=== PATIENT | male | born 1950 | race Caucasian/White ===

== ENCOUNTER 2024-02-13 12:09 | Day surgery (SDC) | payer OTHER ==
--- NOTE | 2024-01-30 13:34 | RAD REPORT ---
EXAM DESCRIPTION: RAD - Chest Pa And Lat (2 Views) - 01/30/2024 1:25 pm CLINICAL HISTORY: PRE OP ABD ANGIO Chest pain. COMPARISON: <Comparisons> FINDINGS: The lungs are clear. The heart is mildly prominent in size. No displaced fractures. IMPRESSION: No acute or concerning finding suspected. The USPSTF recommends annual screening for lung cancer with low-dose CT (LDCT) in adults aged 50 to 8 0 years who have a 20 pack-year smoking history and currently smoke or have quit within the past 15 y ears.
[2024-01-30 14:49] LABS: Absolute Basophils 0.1 K/uL (0-0.5); Absolute Eosinophils 0.3 K/uL (0-0.5); Absolute Lymphocytes (CBC) 2.2 K/uL (0.7-4.9); Absolute Monocytes 0.7 K/uL (0.1-1.3); Absolute Neutrophil 4.2 K/uL (1.8-8.0); Eosinophils % 4.3 % (0-4.4); Hematocrit 43.8 % (39.6-49.0); Hemoglobin 14.7 g/dL (13.6-17.9); Lymphocytes % 29.9 % (15.3-44.8); MCH 31.8 pg (27.0-35.0); MCHC 33.4 g/dL (32.0-36.0); MCV 95.1 fL (80-100); MPV 8.6 fL (7.6-11.3); Monocytes % 9.1 % (3.3-12.3); Neutrophils % 55.7 % (41.7-73.7); Platelets 380 thou/uL (152-406); RBC Red Blood Cell Count 4.61 M/uL (4.33-5.43); Red Cell Distribution Width 12.8 % (12.1-15.2)
[2024-01-30 15:03] LABS: PT Prothrombin Time 10.3 SECONDS (9.5-12.5); PTT, Activated Partial Thromb 31.8 SECONDS (24.3-36.9); Protime INR 0.93
--- NOTE | 2024-02-01 16:21 | EKG ---
Test Date: 2024-01-30 Test Time: 13:09:05 Flitch Hanger: HEIDI MEASUREMENT RESULTS: Intervals: Rate: 57 IA: 188 QRSD: 100 QT: 460 QTc: 447 [place]: P: 39 IA: 188 QRS: 5 T: 54 INTERPRETIVE STATEMENTS: Sinus bradycardia Nonspecific T wave abnormality Abnormal ECG Compared to ECG 03/14/2001 12:19:00 T-wave abnormality now present Sinus rhythm no longer present Electronically Signed On 02-01-24 16:17:30 CDT by Jameson Restrepo
[2024-02-13] MEDS: NA CHLORIDE 0.9% 500 ML ONE (14:00)
[2024-02-13] MEDS ORDERED: MIDAZOLAM HCL 2 MG/2 ML INJ ONE (15:39)
[2024-02-13] MEDS ORDERED: ATROPINE SULF 1 MG/10 ML SYR IV ONE (15:39)
[2024-02-13] MEDS ORDERED: LIDOCAINE 1% 20 ML MDV ONE (15:39)
[2024-02-13] MEDS ORDERED: HEPA 1000U/500MLS 2,000 UNIT/1,000 ML BAG IV ONE (15:39)
[2024-02-13] MEDS ORDERED: FENTANYL CITR 100 MCG/2 ML ONE (15:39)
[2024-02-13] MEDS ORDERED: HEPARIN 5000 UNIT/ML 1 ML VIAL ONE (15:40)
[2024-02-13] MEDS ORDERED: HEPARIN 10,000 UNIT/10 ML VIAL IV ONE (15:40)
[2024-02-13] MEDS ORDERED: VERAPAMIL HCL 10 MG/4 ML VIAL IV ONE (16:06)
[2024-02-13 17:26] VITALS: TEMP 97.9; O2SAT 96
[2024-02-13 18:24] VITALS: BP 134/74
--- NOTE | 2024-02-13 20:15 | OP ---
Date of Procedure: 02/13/2024 Surgeon: ANY YADAV Procedure Performed: Peripheral angiogram with runoff. Indication: Peripheral vascular disease. Access: Right radial artery, 6-Russian, closed with TR band. Complications: None. Bleeding: Less than 50 mL. Total Sedation Time: 45 minutes, used fentanyl and Versed. Description Of Procedure: After risks, benefits, and alternatives were explained, the patient agreed to the procedure and signed informed consent. The patient was brought into the cardiac catheterizat ion laboratory, prepped and draped in the usual sterile fashion. Then, I accessed right radial arter y using pediatric micropuncture kit, placed a 6-Russian Slender sheath and then took a 4-Russian long p igtail catheter, placed it in the left external iliac artery and performed an angiogram runoff and th en placed the catheter selectively in the right external iliac artery and performed selective angiogr am and then placed the catheter in distal aorta, performed the limited angiogram of the common and ex ternal iliacs. Then, removed the catheter and the sheath and placed TR band with good hemostasis. Findings: 1.The aorta is widely patent. No disease. 2.Right lower extremity: The right common iliac and external iliacs are widely patent and internal iliacs are widely patent, no disease; and the right common femoral has focal 40% heavily calcified. Profunda is patent. SFA is normal. Triple vessel below the knee including peroneal, anterior tibial , posterior tibial, and above gluteal artery are all clean of disease. 3.Left lower extremity: The left common iliac, left internal and external iliacs are normal and the left common femoral artery has focal 90% stenosis, heavily calcified and then profunda is widely pat ent and the left SFA is normal. Below the knee, the flow is sluggish to be able to see due to the se anne femoral artery stenosis, but appears to have triple vessel runoff that are patent. Conclusion: 1.Severe left common femoral artery stenosis, focal, heavily calcified. 2.Moderate right common femoral artery stenosis. Recommendation: Consult Vascular Surgery for endarterectomy of the left common femoral artery. SR/MODL Voice ID: [id number] Report ID: [id number]
== END 2024-02-13 18:28 | disposition home or self-care (01) ==
LOC: CCL 12:09
PROVIDERS: ATTEND Internal Medicine
DX: I70.223 Atherosclerosis of native arteries of extremities with rest pain, bilateral legs (principal); E11.9 Type 2 diabetes mellitus without complications; I10 Essential (primary) hypertension; E78.5 Hyperlipidemia, unspecified; Z79.899 Other long term (current) drug therapy
CPT/HCPCS: 93005; 85025; 80048; 36415; 85610; 82947; 85730; 71046; 75716; 75625; 36246; 76937; C1893; J1644; J2001; J2250; J3010; J7040; 36200; 36245; 75630; 99152; 99153; J0461

== ENCOUNTER 2024-05-08 11:51 | Emergency (ER) | payer OTHER ==
--- OUTSIDE RECORDS SUMMARY | 2024-05-08 11:52 | XMS REPORT | Continuity of Care Document ---
Author Name Unknown Address [address] [place] [address] [facility] thconnect Address 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 Ordering Clinician Indication Dosage Frequency Signature (SIG) Comments Components Source Brilinta 90 MG Brilinta 90 MG No 1{table t} BID Brilinta 90 MG Vital Signs Vital Name Observation Time Observation Value Comments S ource temperature 2024-03-05 11:00:00 97.4 [degF] [facility] respiratory rate 2024-03-05 11:00:00 16 /min [facility] heart rate 2024-03-05 11:00:00 64 /min [facility] blood pressure systolic 2024-03-05 11:00:00 151 mm[Hg] [facility] blood pressure diastolic 2024-03-05 11:00:00 71 mm[Hg] [facility] height 2024-03-05 11:00:00 70 [in_i] [facility] weight-kg 2024-03-05 11:00:00 80.29 kg [facility] bmi 2024-03-05 11:00:00 25.39 kg/m2 Lissy silverio [facility] Encounters Start Date/Time End Date/Time Encounter Type Admission Type Attending [facility] Facility Care Department Encounter ID Source 2024-03-05 11:17:01 Outpatient Jameson Restrepo [facility] [id number] [facility] 2024-03-05 00:00:00 2024-03-05 00:00:00 Office Visit- New Pt.- Level 5 [facility] [id number] [facility]
[2024-05-08] MEDS ORDERED: LIDOCAINE 2% W/EPI 1:200,000 MPF 20 ML VIAL IM ONE (12:19)
[2024-05-08] MEDS ORDERED: TDAP (DIPHTH,PERTUSS(ACELL),TET VAC) 0.5 ML VIAL IMVAC ONE (12:19)
[2024-05-08 13:00] LABS: Absolute Basophils 0.1 K/uL (0-0.5); Absolute Eosinophils 0.1 K/uL (0-0.5); Absolute Monocytes 0.6 K/uL (0.1-1.3); Absolute Neutrophil 6.8 K/uL (1.8-8.0); Basophils % 0.7 % (0-1.3); Eosinophils % 1.7 % (0-4.4); Hematocrit 42.8 % (39.6-49.0); Hemoglobin 14.1 g/dL (13.6-17.9); Lymphocytes % 11.4 % (15.3-44.8); MCH 31.5 pg (27.0-35.0); MCHC 33.1 g/dL (32.0-36.0); MCV 95.4 fL (80-100); MPV 7.8 fL (7.6-11.3); Monocytes % 6.9 % (3.3-12.3); Neutrophils % 79.3 % (41.7-73.7); Platelets 276 thou/uL (152-406); RBC Red Blood Cell Count 4.48 M/uL (4.33-5.43); Red Cell Distribution Width 16.1 % (12.1-15.2)
[2024-05-08 13:03] LABS: PT Prothrombin Time 10.4 SECONDS (9.4-12.5); PTT, Activated Partial Thromb 30.1 SECONDS (24.3-36.9); Protime INR 0.93
[2024-05-08 13:18] LABS: Anion Gap 9.9 mEq/L (5.0-15.0); Potassium 3.9 mEq/L (3.5-5.1); Troponin High Sensitivity 5.9 pg/mL (<58.9)
--- NOTE | 2024-05-08 13:48 | RAD REPORT ---
EXAM: CT brain without contrast HISTORY: GLF, blood thinners COMPARISON: None TECHNIQUE: Multiple contiguous axial images were obtained and a CT of the brain without contrast. Sag ittal and coronal reformats were performed. FINDINGS:No evidence of hydrocephalus, intracranial hemorrhage, or extra-axial fluid collection. Mild brain atrophy with mild periventricular and deep white matter chronic microvascular ischemic ch anges present. The calvarium is intact. Polypoidal mucosal thickening centered at the sphenoethmoidal drainage pathw ay. Right frontal/temporal scalp swelling and hematoma. IMPRESSION: No evidence of acute intracranial abnormality. EXAM: CT of the cervical spine without contrast HISTORY: GLF, blood thinners COMPARISON: None TECHNIQUE: Multiple contiguous axial images were obtained in a CT of the cervical spine without contr ast. Sagittal and coronal reformats were performed. FINDINGS: The vertebral bodies demonstrate normal height and alignment. No evidence of acute fracture or subluxation.. Mild degenerative changes are present, without significant bony canal or foraminal stenosis. No prevertebral soft tissue swelling is seen. The posterior facets are well aligned. Normal alignment of the skull base with the cervical spine is seen. The lung apices are unremarkable. IMPRESSION: No evidence of acute osseous abnormality of the cervical spine. Right frontal/temporal scalp swelling and hematoma. Chronic findings as above.
--- NOTE | 2024-05-08 13:50 | RAD REPORT ---
EXAMINATION: ONE VIEW CHEST XR CLINICAL INDICATION: Male, 73 years old.,fall TECHNIQUE: Frontal chest projection is submitted. Examination is limited by patient positioning and t echnique. COMPARISON: 01/30/2024. FINDINGS: The lungs are well inflated and clear. No pneumothorax or sizable effusion. The heart is normal in s ize. IMPRESSION: No acute intrathoracic abnormalities.
--- NOTE | 2024-05-08 15:24 | ER ---
Nurse's Notes [facility] Name: Hebert Prince Age: 73 yrs Sex: Male : 1950 Arrival Date: 05/08/2024 Time: 11:51 Bed 3 Private MD: Diagnosis: Fall on same level, unspecified;Scalp Laceration/ Open wound of scalp Presentation: 05/08 11:54 Chief complaint: Patient states: GOT DIZZY AND FELL FACE FIRST AND HIT FACE ON ROCKS. db NOTED LACERATION TO RIGHT 5TH FINGER RIGHT EYE, RIGHT LIP AND RIGHT BROW LACERATION. Coronavirus screen: Client denies travel out of the [place] in the last 14 days. At this time, the client does not indicate any symptoms associated with coronavirus-19. Ebola Screen: Patient negative for fever greater than or equal to 101.5 degrees Fahrenheit, and additional compatible Ebola Virus Disease symptoms Patient denies exposure to infectious person. Patient denies travel to an Ebola-affected area in the 21 days before illness onset. No symptoms or risks identified at this time. Complicating Factors: The patient fell landing on an outstretched hand. Initial Sepsis Screen: Does the patient meet any 2 criteria? No. Patient's initial sepsis screen is negative. Does the patient have a suspected source of infection? No. Patient's initial sepsis screen is negative. Risk Assessment: Do you want to hurt yourself or someone else? Patient reports no desire to harm self or others. Onset of symptoms was May 08, 2024. 11:54 Method Of Arrival: Ambulatory db 11:54 Acuity: TABITHA 2 db Triage Assessment: 11:56 General: Appears in no apparent distress. uncomfortable, Behavior is calm, cooperative. db Pain: Complains of pain in face and right hand. Neuro:. Injury Description: Laceration sustained to face and right hand. Historical: - Allergies: 11:55 No Known Allergies; db - PMHx: 11:57 Hypertensive disorder; Diabetes mellitus; db - PSHx: 11:57 Stented artery; db - Immunization history:: Adult Immunizations. - Infectious Disease History:: Denies. - Social history:: Smoking status: Patient denies any tobacco usage or history of. Screenin:13 [facility] ED Fall Risk Assessment (Adult) History of falling in the last 3 months, ph including since admission Yes- physiologic fall (2 pts) Confusion or Disorientation No (0 pts) Intoxicated or Sedated No (0 pts) Impaired Gait No (0 pts) Mobility Assist Device Used No (0 pt) Altered Elimination No (0 pt) Score/Fall Risk Level 0 - 2 = Low Risk Oriented to surroundings, Maintained a safe environment, Hourly rounding (assess needs \T\ fall precautionary measures) done, Used ambulatory aids as needed (educated on \T\ assisted with). Abuse screen: Denies threats or abuse. Denies injuries from another. Nutritional screening: No deficits noted. Tuberculosis screening: No symptoms or risk factors identified. Vital Signs: 11:56 BP 161 / 68; Pulse 67; Resp 18; Temp 97.9; Pulse Ox 98% ; Weight 83.91 kg; Height 5 ft. db 9 in. ; 14:23 BP 161 / 77; Pulse 66; Resp 16 S; Pulse Ox 98% on R/A; kc6 11:56 Body Mass Index 27.32 (83.91 kg, 175.26 cm) db ED Course: 11:51 Patient arrived in ED. db 11:55 Triage completed. db 11:56 Marco Antonio Simmons MD is Attending Physician. ec2 11:56 Arm band placed on left wrist. Patient placed in an exam room. db 12:01 Eunice Willard, [place] is Primary Nurse. kc6 12:15 Patient has correct armband on for positive identification. Bed in low position. Call light in reach. Side rails up X 1. gambling monitor on. Pulse ox on. NIBP on. 12:31 CT Head C Spine In Process Unspecified. EDMS 13:02 Initial lab(s) drawn, by me, sent to lab. Inserted saline lock: 22 gauge in left ph forearm, using aseptic technique. Blood collected. Flushed with 10 mL NS. 13:05 Wound care: to laceration located on palmar aspect of proximal phalanx of right little ph finger was cleaned with Hibiclens, irrigated with normal saline, dressed with Neosporin, non-adherent gauze, finger splint and sonali wrap, Patient tolerated well. Wound care: to laceration located on right side of forehead was cleaned with Hibiclens, irrigated with normal saline. Wound care: to laceration located on philtrum and upper vermilion border was cleaned with Hibiclens, irrigated with normal saline, Patient tolerated well. 13:19 CXR XRAY In Process Unspecified. EDMS Administered Medications: 13:02 Drug: Boostrix Tdap IM 0.5 ml IM once; as a single dose Route: IM; Site: right deltoid; ph 14:23 Follow up: Response: No adverse reaction [facility] 15:07 Drug: Lidocaine-Epinephrine Infiltration -2 % (1:100,000) 10 ml Infiltration once; to kc6 bedside Route: Infiltration; Medication: 13:58 Vaccine Information Statement (VIS) provided today. Questions and/or concerns ph addressed. VIS edition date: March 19, 2021. Outcome: 15:23 Discharge ordered by . ec2 15:59 Patient left the ED. ph Signatures: Dispatcher [employer] Lacey Auguste RN RN ph Eunice Willard RN RN kc6 Alexus Queen RN RN db Corral, Edwin, MD MD ec2 Corrections: (The following items were deleted from the chart) 11:57 11:56 Pulse 67bpm; Resp 18bpm; Pulse Ox 98%; Temp 97.9F; 83.91 kg; Height 5 ft. 9 in.; db BMI: 27.3; db
--- NOTE | 2024-05-08 15:24 | EDPHYS ---
Physician Documentation [facility] Name: Hebert Prince Age: 73 yrs Sex: Male : 1950 Arrival Date: 05/08/2024 Time: 11:51 Bed 3 Private MD: ED Physician Marco Antonio Simmons HPI: 05/08 12:04 This 73 yrs old Male presents to ER via Ambulatory with complaints of ec2 Laceration To Scalp/Face, Fall Injury. 12:04 Patient arrives today for evaluation of a ground-level fall. Patient reports that he ec2 felt lightheaded and subsequently fell down. Patient complaining of head pain and right hand pain. Sustained lacerations over the areas. No LOC. On Brilinta. Unsure of tetanus status. No chest pain, no difficulty breathing.. Historical: - Allergies: 11:55 No Known Allergies; db - PMHx: 11:57 Hypertensive disorder; Diabetes mellitus; db - PSHx: 11:57 Stented artery; db - Immunization history:: Adult Immunizations. - Infectious Disease History:: Denies. - Social history:: Smoking status: Patient denies any tobacco usage or history of. ROS: 12:04 Constitutional: as per hpi ec2 Exam: 12:04 Constitutional: GEN: No acute distress HEENT: -Head: no deformities -Eyes: EOMI CV: ec2 regular rate LUNGS: no respiratory distress ABD: non-tender SKIN: 1 cm laceration over the right fifth digit MCP, laceration over the right eyebrow, contusion to the right forehead. MSK: No C/T/L spine deformities RUE w/o bony deformity LUE w/o bony deformity RLE w/o bony deformity LLE w/o bony deformity NEURO: moves all extremities equally, GCS 15 (E4, V5, M6) Vital Signs: 11:56 BP 161 / 68; Pulse 67; Resp 18; Temp 97.9; Pulse Ox 98% ; Weight 83.91 kg; Height 5 ft. db 9 in. ; 14:23 BP 161 / 77; Pulse 66; Resp 16 S; Pulse Ox 98% on R/A; kc6 11:56 Body Mass Index 27.32 (83.91 kg, 175.26 cm) db Laceration: 15:24 Wound Repair of 3cm ( 1.2in ) subcutaneous laceration to face. Distal ec2 neuro/vascular/tendon intact. Anesthesia: Local anesthetic administered with 8 mls of 1% lidocaine w/ Epi. Wound prep: Moderate cleansing by nurse. Skin closed with 3 4-0 Prolene using simple sutures and sterile technique. Patient tolerated well. MDM: 11:56 Patient medically screened. ec2 12:05 Data reviewed: vital signs. ED course: Patient arrives today for evaluation after a ec2 ground-level fall with laceration sustained. Will update his tetanus status, obtain lab work, EKG, CT scan of the head. Differential includes arrhythmia, electrolyte disturbances, anemia, intracranial brain bleed, lacerations. . 12:20 ED course: EKG independently reviewed and interpreted by me, shows normal sinus rhythm, ec2 rate of 65, no acute ST segment elevations, nonactionable intervals.. 14:10 ED course: CBC reassuring, metabolic profile reassuring, troponin within normal ranges. ec2 Chest x-ray shows no acute intrathoracic process. CT scan of the head and C-spine without acute intracranial processes. . 05/08 11:56 Order name: Basic Metabolic Panel; Complete Time: 14:10 ec2 05/08 11:56 Order name: CBC with Diff; Complete Time: 14:10 ec2 05/08 11:56 Order name: Troponin HS; Complete Time: 14:10 ec2 05/08 12:03 Order name: Ptt, Activated; Complete Time: 14:10 ec2 05/08 12:03 Order name: PT-INR; Complete Time: 14:10 2 05/08 12:03 Order name: CXR XRAY; Complete Time: 14:10 05/08 12:03 Order name: CT Head C Spine; Complete Time: 14:10 ec2 05/08 11:56 Order name: EKG; Complete Time: 11:57 2 05/08 11:56 Order name: Cardiac monitoring; Complete Time: 12:18 ec2 05/08 11:56 Order name: EKG - Nurse/Tech; Complete Time: 12:13 05/08 11:56 Order name: IV Saline Lock; Complete Time: 13:02 05/08 11:56 Order name: Labs collected and sent; Complete Time: 13:02 05/08 11:56 Order name: O2 Per Protocol; Complete Time: 12:01 ec2 05/08 11:56 Order name: O2 Sat Monitoring; Complete Time: 12:01 ec2 05/08 12:03 Order name: Wound Care: R hand- clean, dressing, finger splint over pinky; Complete ec2 Time: 13:13 05/08 12:03 Order name: Wound Care: clean R forehead/lip; Complete Time: 13:13 ec2 Administered Medications: 13:02 Drug: Boostrix Tdap IM 0.5 ml IM once; as a single dose Route: IM; Site: right deltoid; ph 14:23 Follow up: Response: No adverse reaction kc6 15:07 Drug: Lidocaine-Epinephrine Infiltration -2 % (1:100,000) 10 ml Infiltration once; to kc6 bedside Route: Infiltration; Disposition Summary: 05/08/24 15:23 Discharge Ordered Notes: You need to have the stitches removed in 7-10 days. Location: Home ec2 Condition: Stable ec2 Diagnosis - Fall on same level, unspecified ec2 - Scalp Laceration/ Open wound of scalp ec2 Followup: ec2 - With: Private Physician - When: - Reason: Re-evaluation by your physician Discharge Instructions: - Discharge Summary Sheet ec2 - Sutures, [place], or Adhesive Wound Closure, [id number] ec2 Forms: - Medication Reconciliation Form ec2 - Antibiotic Education ec2 - Prescription Opioid Use ec2 - Patient Portal Instructions ec2 - Leadership Thank You Letter ec2 Signatures: Dispatcher [employer] Lacey Auguste RN RN ph Campbell, Kaitlyn, RN RN kc6 Alexus Queen RN RN db Corral, Edwin, MD MD ec2
[2024-05-08 16:19] VITALS: TEMP 97.9; O2SAT 98
[2024-05-08 16:20] VITALS: BP 161/77
--- NOTE | 2024-05-09 12:11 | EKG ---
Test Date: 2024-05-08 Test Time: 12:16:12 [employer]: MARISOL MEASUREMENT RESULTS: Intervals: Rate: 65 ND: 186 QRSD: 94 QT: 424 QTc: 440 [place]: P: 35 ND: 186 QRS: -4 T: 6 INTERPRETIVE STATEMENTS: Normal sinus rhythm Moderate voltage criteria for LVH, may be normal variant Inferior infarct, age undetermined Abnormal ECG Compared to ECG 01/30/2024 13:09:05 Left ventricular hypertrophy now present Myocardial infarct finding now present Sinus bradycardia no longer present T-wave abnormality no longer present Electronically Signed On 05-09-24 12:08:16 CDT by Keshav Campoverde
== END 2024-05-08 15:59 | disposition home or self-care (01) ==
LOC: ER 11:51
DX: S01.01XA Laceration without foreign body of scalp, initial encounter (principal); W18.30XA Fall on same level, unspecified, initial encounter; E11.9 Type 2 diabetes mellitus without complications; I10 Essential (primary) hypertension
CPT/HCPCS: 12013; 36415; 70450; 71045; 72125; 80048; 84484; 85025; 85610; 85730; 93005; 96372; 99285